=== PATIENT | male | born 1985 | race Caucasian/White ===

== ENCOUNTER 2019-01-26 06:34 | Emergency (ER) | payer OTHER ==
[2019-01-26 07:08] VITALS: BMI 25.8
[2019-01-26] MEDS ORDERED: SODIUM CHLORIDE 1,000 ML IV STA ×2 (07:55→09:20)
--- NOTE | 2019-01-26 08:01 | PDOC ---
History of Present Illness - General Chief Complaint: Cold Symptoms Stated Complaint: FAINTING,CHILLS Time Seen by Provider: 01/26/19 07:28 History Source: Patient Exam Limitations: Clinical Condition - History of Present Illness Initial Comments: 01/26/19 07:55 Patient with no significant past medical history present with complaint of three -day history of fever, chills, body aches, intermittent dry cough and weakness. There for report she found patient syncopized in the bathroom days morning and brought him to the emergency room. Patient reported drinking orange juice after episode and not feel a bit better. Patient reports to feeling weakness. Denies chest pain, shortness of breath, dizziness, nausea or vomiting. Denies areas. Denies any other symptoms. Girlfriend denies patient hitting head with syncope Timing/Duration: other (3 days) Past History - Past Medical History Allergies/Adverse Reactions: Allergies Allergy/AdvReac Type Severity Reaction Status Date / Time No Known Allergies Allergy Verified 01/26/19 07:08 Home Medications: Ambulatory Orders Doxycycline Hyclate 100 mg PO 14 #7 capsule 01/26/19 Oseltamivir Phosphate [Tamiflu] 75 mg PO BID 5 Days #10 capsule 01/26/19 - Suicide/Smoking/Psychosocial Hx Smoking History: Never smoked Have you smoked in the past 12 months: No Information on smoking cessation initiated: No Hx Alcohol Use: No Drug/Substance Use Hx: No Review of Systems - Review of Systems Able to Perform ROS?: Yes Is the patient limited Tamazight proficient: No Constitutional: Yes: See HPI, Chills, Fever, Malaise, Weakness HEENTM: Yes: Symptoms Reported, See HPI, Nose Congestion. No: Eye Pain, Blurred Vision, Tearing, Recent change in vision, Double Vision, Cataracts, Ear Pain, Ocular Prothesis, Ear Discharge, Nose Pain, Tinnitus, Nose Bleeding, Hearing Loss, Throat Pain, Throat Swelling, Mouth Pain, Dental Problems, Difficulty Swallowing, Mouth Swelling, Other Respiratory: Yes: Symptoms reported, See HPI, Cough. No: Orthopnea, Shortness of Breath, SOB with Exertion, SOB at Rest, Stridor, Wheezing, Productive cough, Hemoptysis, Other Cardiac (ROS): Yes: Symptoms Reported, See HPI, Syncope. No: Chest Pain, Edema , Irregular Heart Rate, Lightheadedness, Palpitations, Chest Tightness, Other ABD/GI: No: Symptoms Reported, Abdominal Distended, Constipated, Diarrhea, Nausea, Vomiting, Abdominal cramping Neurological: Yes: Weakness. No: Headache, Numbness, Paresthesia, Seizure, Tingling, Ataxia, Dizziness All Other Systems: Reviewed and Negative *Physical Exam - Vital Signs Last Vital Signs Temp Pulse Resp BP Pulse Ox 98.5 F 78 18 92/57 L 99 01/26/19 06:35 01/26/19 06:35 01/26/19 06:35 01/26/19 06:35 01/26/19 06:35 - Physical Exam Comments: 01/26/19 07:58 GENERAL: Well developed, well nourished. Awake and alert. No acute distress. HEENT: Normocephalic, atraumatic. PERRLA, EOMI. No conjunctival pallor. Sclera are non-icteric. Moist mucous membranes. Oropharynx is clear. NECK: Supple. Full ROM. CARDIOVASCULAR: Regular rate and rhythm. No murmurs, rubs, or gallops. Distal pulses are 2+ and symmetric. PULMONARY: No evidence of respiratory distress. Lungs clear to auscultation bilaterally. No wheezing, rales or rhonchi. ABDOMINAL: Soft. Non-tender. Non-distended. No rebound or guarding. No organomegaly. Normoactive bowel sounds. MUSCULOSKELETAL Normal range of motion at all joints. EXTREMITIES: No cyanosis. No clubbing. No edema. No calf tenderness. SKIN: Warm and dry. Normal capillary refill. No rashes. No jaundice. NEUROLOGICAL: Alert, awake, appropriate. Gait is normal without ataxia. PSYCHIATRIC: Cooperative. Good eye contact. Appropriate mood General Appearance: Yes: Nourished, Appropriately Dressed. No: Apparent Distress Moderate Sedation - Procedure Monitoring Vital Signs: Procedure Monitoring Vital Signs Temperature 98.5 F 01/26/19 06:35 Pulse Rate 78 01/26/19 06:35 Respiratory Rate 18 01/26/19 06:35 Blood Pressure 92/57 L 01/26/19 06:35 O2 Sat by Pulse Oximetry (%) 99 01/26/19 06:35 ED Treatment Course - LABORATORY CBC & Chemistry Diagram: 01/26/19 09:00 01/26/19 07:57 Medical Decision Making - Medical Decision Making 01/26/19 07:58 Patient with no significant past medical history brought in by girlfriend due to syncopized episode and patient with complaint of three-day history of URI symptoms with weakness and fever. Clinical exam unremarkable except low BPs. Rapid flu tests ordered to rule out influenza. CBC, CMP ordered. Checks x-ray ordered. IV fluid normal saline 1 L bolus ordered. Will consider imaging based on lab results. 01/26/19 09:20 Rapid flu positive for influenza A. CXR shows no acute pathology. labs still pending. Patient report improved symptoms with IVF. Tamiflu ordered for influenza 01/26/19 10:50 Patient report feeling better. repeat BP was 117/70. Patient stable for outpatient management with Tamiflu for influenza and Doxy for possible superimposed bacteria infection with PCP follow-up. Plan discussed with patient and pt agrees with plan *DC/Admit/Observation/Transfer Diagnosis at time of Disposition: Influenza A, Viral syndrome Fever Qualifiers: Fever type: unspecified Qualified Code(s): R50.9 - Fever, unspecified - Discharge Dispostion Disposition: HOME Condition at time of disposition: Stable Decision to Admit order: No - Prescriptions Prescriptions: Doxycycline Hyclate 100 mg PO 14 #7 capsule Oseltamivir Phosphate [Tamiflu] 75 mg PO BID 5 Days #10 capsule - Referrals - Patient Instructions Printed Discharge Instructions: DI for Viral Upper Respiratory Infection -- Adult Additional Instructions: Take medications as prescribed. Increase fluid intake. Alternate Tylenol and Motrin as needed for fever. Follow-up with primary care., To emergency room if worsening symptoms of headaches or weakness. - Post Discharge Activity
--- NOTE | 2019-01-26 08:16 | PDOC ---
*Physical Exam - Vital Signs Last Vital Signs Temp Pulse Resp BP Pulse Ox 98.5 F 78 18 92/57 L 99 01/26/19 06:35 01/26/19 06:35 01/26/19 06:35 01/26/19 06:35 01/26/19 06:35 - Physical Exam Comments: 01/26/19 08:18 The patient was examined by [YESY Johnson] under my direct supervision. I personally evaluated the patient. I concur with the above findings and the plan of care. ED Treatment Course - LABORATORY CBC & Chemistry Diagram: 01/26/19 07:57
[2019-01-26] MEDS ORDERED: OSELTAMIVIR PHOSPHATE 75 MG CAPSULE PO ONE (09:15)
[2019-01-26 09:18] LABS: BASO % 0.4 % (0-2.0); EOS % 1.5 % (0-4.5); HEMATOCRIT 40.8 % (35.4-49); HEMOGLOBIN 14.2 GM/dL (11.7-16.9); LYMPH % 3.8 % (8-40); MCH 31.6 pg (25.7-33.7); MCHC 34.8 g/dl (32.0-35.9); MEAN CELL VOLUME 90.8 fl (80-96); MEAN PLT VOLUME 10.9 fl (7.5-11.1); MONO % 11.5 % (3.8-10.2); NEUT % 82.8 % (42.8-82.8); PLATELET COUNT 135 K/MM3 (134-434); RBC 4.49 M/mm3 (4.00-5.60); RDW 13.1 % (11.9-15.9); WHITE BLOOD COUNT 9.3 K/mm3 (4.0-10.0)
[2019-01-26 09:38] LABS: ALBUMIN 3.9 g/dl (3.4-5.0); ALK PHOS 54 U/L (45-117); ANION GAP 5 MMOL/L (8-16); BILIRUBIN,TOTAL 0.6 mg/dL (0.2-1); BLOOD UREA NITROGEN 7 mg/dL (7-18); CALCIUM 8.1 mg/dL (8.5-10.1); CHLORIDE 104 mmol/L (98-107); CO2 27 mmol/L (21-32); CREATININE 1.1 mg/dL (0.55-1.3); GLUCOSE,RANDOM 105 mg/dL (74-106); POTASSIUM 4.2 mmol/L (3.5-5.1); SGOT/AST 43 U/L (15-37); SGPT/ALT 38 U/L (13-61); SODIUM 136 mmol/L (136-145); TOT PROT 7.1 g/dl (6.4-8.2)
[2019-01-26] MEDS ORDERED: OSELTAMIVIR PHOSPHATE 75 MG CAPSULE ONE (09:48)
[2019-01-26 10:35] VITALS: PULSE 95; TEMP 100.1
[2019-01-26] MEDS ORDERED: ACETAMINOPHEN 1000 MG/100 ML VIAL (NON FORMULARY) IVPB ONE (11:00)
[2019-01-26] MEDS ORDERED: ACETAMINOPHEN INJECTION 100 ML IVPB ONE (11:05)
[2019-01-26 11:45] VITALS: BP 109/72
--- NOTE | 2019-01-27 10:54 | EKG ---
Test Reason : Blood Pressure : / mmHG Vent. Rate : 082 BPM Atrial Rate : 082 BPM P-R Int : 162 ms QRS Dur : 080 ms QT Int : 364 ms P-R-T Axes : 058 050 034 degrees QTc Int : 425 ms NORMAL SINUS RHYTHM NORMAL ECG NO PREVIOUS ECGS AVAILABLE Confirmed by PALOMO BLACK MD ([id number]) on 01/27/2019 10:54:07 AM Referred By: Confirmed By:PALOMO BLACK MD
== END 2019-01-26 12:06 | disposition home or self-care (01) ==
LOC: JER 06:34
PROC: 3E033NZ Introduction of Analgesics, Hypnotics, Sedatives into Peripheral Vein, Percutaneous Approach (ICD-10-PCS; principal; 2019-01-26)
PROC: 3E0337Z Introduction of Electrolytic and Water Balance Substance into Peripheral Vein, Percutaneous Approach (ICD-10-PCS; 2019-01-26)
DX: J09.X2 Influenza due to identified novel influenza A virus with other respiratory manifestations (principal); R50.9 Fever, unspecified
CPT/HCPCS: 36415; 71046-TC-FY; 80053; 85025; 87804; 93005; 93010; 99283-25; J0131; J7030